=== PATIENT | female | born 1995 | race Caucasian/White ===

== ENCOUNTER 2019-02-11 16:14 | Emergency (ER) | payer BC ==
[~2019-02-11] VITALS: Ht 162.6 cm; Wt 59.0 kg
[2019-02-11 16:19] VITALS: BP_SYST 121
--- NOTE | 2019-02-11 16:24 | NUR ---
Patient to ER bed 1 to gown for evaluation. Side rails up. Report given to Sayra SINGLETARY.
--- NOTE | 2019-02-11 16:24 | NUR ---
Pt brought by self,A&Ox4, pt presents to ER with sore throat , pt states she was possible expose to measles, skin pink ,warm and intact,afebrile,respirations even and unlabored.
--- NOTE | 2019-02-11 16:26 | NUR ---
Dr Adhikari at bedside examining patient
--- NOTE | 2019-02-11 17:05 | NUR ---
Pt attempting to get out from bed, pt reassured, pt returned to room 08
[2019-02-11 18:33] VITALS: BP_SYST 118
--- NOTE | 2019-02-11 18:33 | NUR ---
Patient given written and verbal discharge instructions and verbalizes understanding. ER MD discussed with patient the results and treatment provided. Patient in stable condition. ID arm band removed. Rx of Motrin and Prednisone given. Patient educated on pain management and to follow up with PMD. Pain Scale 2/10 tolerable for patient . Opportunity for questions provided and answered. Medication side effect fact sheet provided.
== END 2019-02-11 18:33 | disposition home or self-care (01) ==
LOC: SED 16:14
DX: J02.9 Acute pharyngitis, unspecified (principal)
CPT/HCPCS: 36415; 86403; 87081; 99283